=== PATIENT | female | born 1985 | race Caucasian/White ===

== ENCOUNTER → 2020-11-16 | Outpatient (CLI) | payer OTHER ==
[~2020-11-16] MED LIST: BIRTH CONTROL PO; GENERESS FE CH1 EACH PO; IBUPROFEN 800800 M1 PO
== END ==
LOC: M.ULTRA 07:24
PROVIDERS: ATTEND Nurse Practitioner Family
DX: N93.8 Other specified abnormal uterine and vaginal bleeding (principal); Z97.5 Presence of (intrauterine) contraceptive device